=== PATIENT | female | born 1960 ===

== ENCOUNTER 2023-03-23 12:51 | Outpatient (RCR) | payer OTHER, SELFPAY ==
[2023-03-23 13:08] VITALS: BMI 34.8
[2023-03-23 14:04] VITALS: BMI 34.8
== END 2023-06-19 08:46 | disposition home or self-care (01) ==
LOC: ANHDMC 12:51
DX: E11.59 Type 2 diabetes mellitus with other circulatory complications (principal); E78.2 Mixed hyperlipidemia; Z79.4 Long term (current) use of insulin; Z71.3 Dietary counseling and surveillance
CPT/HCPCS: 97802